=== PATIENT | female | born 1960 | race Caucasian/White ===

== ENCOUNTER → 2017-06-16 16:46 | Outpatient (CLI) | payer OTHER, SELFPAY ==
--- NOTE | 2017-06-16 14:52 | ASPS_PTH ---
PATIENT: R[place] HILL [facility] U[id number] AGE/SX: 64/F ROOM: RE06/16/[address]: Dr. Quan Otto MD : 1960 BED: DIS: SPEC #: [id number] RECD: 06/16/17 16:13 STATUS: VEL COLON #: [id number] RONAK: 06/16/17 14:[address]: Quan Otto DEPT: CYTOLOGY RECD BY: Annalee Jane ENTERED: 06/17/17 08:46 SP TYPE: ASPIRATION OTHR DR: Dr. Ricardo Fregoso MD Tissues: Breast, NOS Procedures: Pap Stain (control) Special Stain Group II Cytology Other HEADER OPERATION: Right breast cyst aspiration PRE-OP DIAGNOSIS: Abnormal right mammogram TISSUE SUBMITTED: Breast aspirate (2 slides) DIAGNOSIS CYTOLOGY Right breast cyst, FNA (smears): Negative for malignant cells. See cytology study and comment. SJ:luz 06/18/17 COMMENT Immediate cytologic evaluation to determine adequacy is not applicable. The findings are consistent with fibrocystic changes. Correlation with clinical, radiologic findings and appropriate follow up are necessary. CYTOLOGY STUDY Slides are reviewed. The specimen consists of apocrine metaplastic cells and acellular material. CYTOLOGY GROSS Received are 2 smears labeled with the patient's name and designated per the requisition as right breast aspirate. Submitted for staining. / TAQUERIA:stephanie 06/17/17 TC:5 CPT: 27135
== END ==
PROVIDERS: Family Provider Family Medicine; PCP Family Medicine; Visit Provider Surgery
DX: R92.8 Other abnormal and inconclusive findings on diagnostic imaging of breast (principal)
CPT/HCPCS: 88161; 88313

== ENCOUNTER 2017-12-31 09:58 | Day surgery (SDC) | payer OTHER, SELFPAY ==
[2017-12-31] VITALS (7 sets, daily range): BP systolic 133–148; BP diastolic 78–91; PULSE 85–93; RESP 16–18; TEMP 36.3–37.5; O2SAT 97–100; BMI 35.3
--- NOTE | 2017-12-31 | EMB_PTH ---
PATIENT: RICO HILL LOC: [facility] [place] U#:[id number] AGE/SX: 57/F ROOM: RE12/31/[address]: Dr. Celeste Núñez, MDDOB: 1960 BED: DIS: 12/31/2017 SPEC #: [id number] RECD: 12/31/17 14:13 STATUS: VEL REHa #: [id number] RONAK: 12/31/17 00:[address]: Celeste Núñez DEPT: SURGICAL PATHOLOGY RECD BY: William Palafox ENTERED: 12/31/17 14:14 SP TYPE: ENDOM BX/C OTHR DR: Dr. Wally Hope MD Tissues: Endometrium, NOS Procedures: Surgery Specimen Level IV HEADER OPERATION: Endometrial biopsy, attempted D & C PRE-OP DIAGNOSIS: Endometrial polyp TISSUE SUBMITTED: Endometrial biopsy MICROSCOPIC DIAGNOSIS Endometrial biopsy: Desquamated benign endocervical epithelial cells, blood and mucous. See comment. JOANNA:luz 01/01/18 COMMENT Definite endometrial tissue is not identified in the submitted specimen. Clinical correlation and appropriate follow up are necessary. Rebiopsy is suggested if clinically indicated. MICROSCOPIC DESCRIPTION Slides are reviewed. GROSS DESCRIPTION Received in fixative is one container labeled with the patient's name and designated endometrial biopsy. The specimen consists of multiple fragments of hemorrhagic mucoid tissue that in aggregate measure 3 x 2.5 x 0.2 cm. The specimen is totally submitted in one cassette. / JOANNA:luz 12/31/17 TC: can not code CPT: 79982
[2017-12-31 10:22] LABS: Hematocrit 44.3 % (37-47); Hemoglobin 14.5 g/dl (12.0-15.0); Mean Corp Hgb Conc 32.7 g/gl (32-36); Mean Corpuscular Hgb 29.4 pg (27.0-32.0); Mean Corpuscular Volume 89.9 fL (81-99); Mean Platelet Vol. 10.1 fl (6.2-12.0); Platelet Count 278 K/mm3 (150-450); RBC Distribution Width CV 13.2 % (11.6-14.6); Red Blood Count 4.93 M/mm3 (4.2-5.4); White Blood Count 7.3 K/mm3 (4.4-11.0)
[2017-12-31 10:23] LABS: Scan Indicated on CBC? Y/N NO
--- NOTE | 2017-12-31 12:51 | DCINST_ITS ---
Discharge Diet: No Restrictions Discharge Activity: Return to Normal Activity, May Shower, May Take a Tub Bath - in 2 weeks. May resume sexual activity in: 1 week Call your doctor if you observe: Fever of 101 or Higher, Using more than one pad per hour Allergies/Adverse Reactions: Allergies albuterol Allergy (Verified 12/25/17 14:06) Other MAKES NERVOUS Medications to take at Discharge Fexofenadine/Pseudoephedrine [Tracey-D 12 Hour Tablet] 1 each PO BID 04/13/14 Potassium Chloride [K-Dur] 20 meq PO BID 04/13/14 Glucosamine/MSM/Chondroitin A [Glucosamine Chondroit MSM Tab] 1 each PO DAILY 12/25/17 Losartan/Hydrochlorothiazide [Hyzaar 50-12.5 Tablet] 1 tab PO DAILY 12/25/17 Primary Care Physician: Wally Hope MD [Primary Care Provider] - Test Results: Test results from this visit will be discussed in further detail at your follow- up appointment, if applicable. Please Follow Up With: Celeste Núñez MD When: as scheduled
--- NOTE | 2017-12-31 12:51 | PCM.OP.BLANK ---
Operative Report Date of Procedure: 12/31/17 Surgeon: Dr. Celeste Morales-Haley Performance Manager: None Pre op Diagnosis: Post coital bleeding, endometrial polyp Post OP Diagnosis: Stenotic cervix, same Surgery Performed: attempted D&C, Endometrial biopsy Findings: uterus anteflexed approx 6cm with sound, cervix stenotic Complications: unable to dilate cervix adequately- unable to perform hysteroscopy EBL: minimal anesthesia: MAC Specimens: EMB Implantable devices: none Operative Note: After informed consent was obtained patient was taken to OR and placed in supine position. Anesthesia was given. patient was placed in yellow fin stirrups and prepped and draped in normal sterile fashion. bladder was drained with straight catheter with approximately 100cc of clear yellow urine expelled. Exam under anesthesia reviewed normal sized uterus with no adnexal masses. open sided speculum placed in posterior fornix of vaginal, single tooth tenaculum was used to gently grasped anterior lip of cervix. Uterus was sounded to 6 cc- significantly anteflexed. Cervix was then gently dilated- unable to dilate adequately to allow hysteroscope insertion. Decision made at this time to perform EMB with Katiana. The tissue was then sent to pathology for examination. no complications. At this time procedure was deemed complete. I will give the patient option to proceed with Dr. Heidi Pinedo for further Hysteroscopy, Polypectomy if desired. Tenaculum removed, speculum removed. Good hemostasis appreciated. Vaginal sweep was negative. Instrument and lap count correct x 2. I anticipate normal postoperative course.
[2017-12-31] MEDS: Ketorolac 30 MG/ML Syringe IV (13:53)
== END 2017-12-31 14:32 | disposition home or self-care (01) ==
LOC: SDC 10:01 → AC 10:02
PROVIDERS: Family Provider Family Medicine; PCP Family Medicine; Visit Provider Obstetrics & Gynecology
PROC: 0UDB8ZZ Extraction of Endometrium, Via Natural or Artificial Opening Endoscopic (ICD-10-PCS; CPT 58558; principal; 2017-12-31 12:05)
DX: N84.0 Polyp of corpus uteri (principal); N93.0 Postcoital and contact bleeding; K21.9 Gastro-esophageal reflux disease without esophagitis; N88.2 Stricture and stenosis of cervix uteri; I10 Essential (primary) hypertension; Z87.891 Personal history of nicotine dependence
CPT/HCPCS: 58100; 36415; 85027; 88305; J7120; J2405

== ENCOUNTER → 2020-01-26 | Outpatient (CLI) | payer OTHER, SELFPAY | END | disposition home or self-care (01) | LOC: MTDU 17:24 | PROVIDERS: PCP Family Medicine; Referring Provider Physician Assistant; Visit Provider Physician Assistant | DX: U07.1 COVID-19 (principal) | CPT/HCPCS: 87635; C9803; U0003 ==

== ENCOUNTER 2020-03-31 19:23 | Emergency (ER) | payer OTHER, SELFPAY ==
[2020-03-31 19:24] VITALS: BP 156/98; PULSE 124; RESP 16; TEMP 36.4; O2SAT 95; BMI 37.1
--- NOTE | 2020-03-31 19:27 | ED.RN ---
pt phone number [phone], saqib [phone]
--- NOTE | 2020-03-31 20:43 | ED.VIS.GEN ---
History of Present Illness Chief Complaint: General Illness Informant: Patient Narrative: Patient states this morning she developed pain all over her body. She notes no other symptoms. But then on direct questioning she notes headache, nausea, diarrhea, decreased appetite. She has been taking ibuprofen today with 0 relief of her pain. She tells me that she is deathly ill and cannot live with her headache. Headache is diffuse throbbing pain. No fevers but she states she feels very warm. She states yesterday she was fine. She states she is already been Covid positive in the past. Capacity - Capacity Assessment Tool Can the patient make a choice & communicate that choice?: Yes Can the patient understand benefits, risks and alternatives?: Yes Can the patient make a logical, rational choice?: Yes Is the choice the patient makes consistent w/ their values?: Yes Is there an impending, emergent risk to the patient?: Unable to Determine Does the patient have an Advance Directive?: No Is there a Surrogate Available?: No i.e. HCPOA: No i.e. close relative (spouse, child, parent, sibling)?: No Past Medical History - Allergies and Home Meds Allergies/Adverse Reactions: Allergies albuterol Allergy (Verified 03/31/20 19:26) Other MAKES NERVOUS Primary Care Physician: Wally Hope MD [Primary Care Provider] - Smoking Status: Former smoker Review of Systems General: Reports: Malaise, - - Hot sensation pain all over. Denies: Chills, Fever, Sweats Eyes: Denies: Visual changes - bilaterally, Diplopia ENT: Denies: Rhinorrhea, Sore throat Cardiovascular: Denies: Chest pain, Palpitations Respiratory: Denies: Dyspnea, Cough, Dyspnea on exertion Gastrointestinal: Reports: Nausea, Diarrhea. Denies: Abdominal pain, Vomiting, Melena, Hematochezia Genitourinary: Denies: Dysuria, Hematuria, Frequency Musculoskeletal: Reports: Myalgias, Arthralgias, Back pain. Denies: Extremity Pain Skin: Denies: Rash, Wounds Neurological: Reports: Headache. Denies: Weakness, Numbness Physical Exam Vital Signs/Narrative: Vital Signs Temp Pulse Resp BP Pulse Ox 03/31/20 19:24 97.6 F L 124 H 16 156/98 H 95 Inital Vital Signs reviewed: Yes General: Well nourished, Well developed, Obese, No Acute Distress Head: Normocephalic, Atraumatic Eyes: Perrl, EOMI ENT: Moist mucous membranes, No rhinorrhea Neck: Supple, Nontender Cardiovascular: Regular rate, Regular rhythm, No murmurs, Tachycardia Respiratory: No distress, CTA bilaterally, Chest nontender Abdomen: Soft, Nontender, Nondistended, Normal bowel sounds Back: Nontender, Normal Inspection Extremities: Nontender, No edema Skin: Normal color, No rash Neurological: Alert, Oriented x3, Cranial nerves II-XII grossly intact, Normal Strength, Normal Sensation Psychological: Normal affect, Normal Mood Diagnostic/Tx/Re-eval - Medical Decision Making I informed patient that awful what she is telling me (myalgias headache nausea diarrhea) she most likely has a viral illness. Given her degree of tachycardia my recommendation would be to check basic blood work EKG and chest x-ray. Patient has decided that if it is most likely a viral illness then she would like to leave. [place]. I believe she has the capacity to make this decision. ED Disposition - Plan for ED Patient: Disposition: Home or Assisted Living Diagnosis: Viral syndrome Instructions: ED Viral Syndrome (Adult) Prescriptions: Ondansetron [Zofran Odt] 4 mg PO Q6H PRN PRN #14 tab PRN Reason: Nausea Prescription Printed Referrals: Wally Hope MD [Primary Care Provider] - As soon as possible
== END 2020-03-31 20:55 | disposition left against medical advice (07) ==
LOC: ED 21:05
PROVIDERS: Emergency Provider Emergency Medicine; PCP Family Medicine
DX: B34.9 Viral infection, unspecified (principal); E66.9 Obesity, unspecified; Z86.16 Personal history of COVID-19; Z87.891 Personal history of nicotine dependence
CPT/HCPCS: 99282